=== PATIENT | female | born 1965 | race Caucasian/White ===

== ENCOUNTER 2017-03-24 10:44 | Emergency (ER) | payer OTHER ==
[~2017-03-24] VITALS: Ht 154.9 cm; Wt 60.0 kg
[2017-03-24] MEDS ORDERED: CETI10TA PO (11:00)
[2017-03-24] MEDS ORDERED: MULT1CHW39 PO (11:00)
[2017-03-24] MEDS ORDERED: RANI15TA PO (11:00)
[2017-03-24] MEDS ORDERED: BUPR150T5 PO (11:00)
[2017-03-24] MEDS ORDERED: NORCOTAB PO (12:06)
[2017-03-24] MEDS ORDERED: BENA25TA10 PO (12:06)
--- NOTE | 2017-03-24 12:11 | REP ---
Clinical: Pain and swelling. Technique: AP, lateral, bilateral oblique views of the left first toe. Findings: Arthritic degenerative changes include subchondral sclerosis at the metatarsophalangeal and interphalangeal joints marginal spurring at the interphalangeal joint and small amounts of dystrophic calcification. No acute fracture dislocation. Impression: Arthritic degenerative changes noted. Signed by Rob Linares MD 03/24/2017 12:03 P
[2017-03-24 12:13] VITALS: BP 118/87
== END 2017-03-24 12:26 | disposition home or self-care (01) ==
LOC: EDBD 10:44 → M ED 10:44
DX: S99.922A Unspecified injury of left foot, initial encounter (principal); L30.9 Dermatitis, unspecified; X58.XXXA Exposure to other specified factors, initial encounter; Y92.9 Unspecified place or not applicable; Y93.9 Activity, unspecified; Y99.9 Unspecified external cause status; K21.9 Gastro-esophageal reflux disease without esophagitis; M19.072 Primary osteoarthritis, left ankle and foot; Z79.899 Other long term (current) drug therapy; Z88.1 Allergy status to other antibiotic agents; Z88.8 Allergy status to other drugs, medicaments and biological substances